=== PATIENT | female | born 1970 | race Caucasian/White ===

== ENCOUNTER 2021-03-11 18:52 | Emergency (ER) | payer OTHER ==
[~2021-03-11] VITALS: Ht 172.7 cm; Wt 68.0 kg
[2021-03-11] MEDS ORDERED: HYDROCODON-ACE1 EAC8 PO (19:47)
[2021-03-11 20:25] VITALS: BP 131/70
== END 2021-03-11 20:26 | disposition home or self-care (01) ==
LOC: M.ERS 18:52
DX: S20.211A Contusion of right front wall of thorax, initial encounter (principal); F17.210 Nicotine dependence, cigarettes, uncomplicated; Z90.49 Acquired absence of other specified parts of digestive tract; W19.XXXA Unspecified fall, initial encounter; Y93.89 Activity, other specified; Y92.89 Other specified places as the place of occurrence of the external cause; Y99.8 Other external cause status